=== PATIENT | female | born 1970 | race Caucasian/White ===

== ENCOUNTER → 2022-10-15 | Outpatient (REF) | LOC: M SLEEP HO 10:00 | PROVIDERS: ATTEND Physician Assistant | DX: G47.33 Obstructive sleep apnea (adult) (pediatric) (principal) ==

== ENCOUNTER → 2023-04-29 | Outpatient (CLI) | payer MEDICARE, OTHER | LOC: M WHC 10:37 | PROVIDERS: ATTEND Physician Assistant | DX: Z12.31 Encounter for screening mammogram for malignant neoplasm of breast (principal) ==

== ENCOUNTER → 2024-08-14 | Outpatient (CLI) | payer MEDICARE | LOC: M WHC 13:33 | PROVIDERS: ATTEND Physician Assistant | DX: Z12.31 Encounter for screening mammogram for malignant neoplasm of breast (principal); R92.323 Mammographic fibroglandular density, bilateral breasts ==

== ENCOUNTER → 2025-06-29 | Outpatient (REF) | payer MEDICARE ==
[2025-06-29 18:44] LABS: TOTAL PROTEIN,RANDOM URINE < 6.0 MG/DL (0.0-14.0)
[2025-06-29 18:52] LABS: BASO # 0.1 10^3/uL (0.0-0.2); BASO % 0.6 % (0.0-1.0); EOS # 0.2 10^3/uL (0.0-0.5); EOS % 2.7 % (0.0-3.0); LYMPH # 3.1 10^3/uL (1.5-5.0); LYMPH % 39.2 % (24.0-44.0); MONO # 0.7 10^3/uL (0.0-0.8); MONO % 8.6 % (2.0-8.0); NEUTROPHILS # 3.8 10^3/uL (1.5-8.5); NEUTROPHILS % 48.4 % (36.0-66.0); PLATELET COUNT, AUTOMATED 379 10^3/uL (150-450)
[2025-06-29 18:58] LABS: ERYTHROCYTE SEDIMENTATION RATE 10 mm/hr (0-30)
[2025-06-29 19:01] LABS: APPEARANCE, URINE HAZY (CLEAR); BACTERIA, URINE AUTO NEGATIVE (NEGATIVE); BILIRUBIN, URINE AUTO NEGATIVE (NEGATIVE); BLOOD, URINE BLOOD NEGATIVE (NEGATIVE); CALCIUM OXALATE CRYSTALS SMALL; GLUCOSE, URINE (UA) AUTO NEGATIVE (NEGATIVE); KETONE, URINE AUTO NEGATIVE (NEGATIVE); LEUKOCYTE ESTERASE, URINE AUTO NEGATIVE (NEGATIVE); MUCUS, URINE SMALL (NEGATIVE); NITRITE, URINE AUTO NEGATIVE (NEGATIVE); PROTEIN, URINE AUTO NEGATIVE (NEGATIVE); RBC, URINE AUTO 0 /HPF (0-3); SPECIFIC GRAVITY URINE AUTO 1.016 (1.002-1.035); SQUAMOUS EPITHELIAL CELL UR AU 1 /HPF (0-6); UROBILINOGEN, URINE AUTO 0.2 mg/dL (0.0-2.0); WBC, URINE AUTO 1 /HPF (0-3)
[2025-06-29 20:54] LABS: C REACTIVE PROTEIN QUANTITATIV 0.85 MG/DL (<1.0)
[2025-06-29 20:55] LABS: IRON (FE) 61.0 UG/DL (50-170); MAGNESIUM LEVEL 2.1 MG/DL (1.8-2.4); PERCENT SATURATION 18.2 % (13.2-45.0); PHOSPHORUS LEVEL 4.3 MG/DL (2.5-4.9)
[2025-06-29 20:56] LABS: TOTAL 25(OH) VITAMIN D 37.7 NG/ML (20.0-100.0)
[2025-06-29 20:57] LABS: VITAMIN B12 LEVEL 531.0 PG/ML (211-911)
[2025-06-29 21:53] LABS: COMPLEMENT C4 23.5 MG/DL (12-36)
== END ==
LOC: M SFHCRHEU 14:54
PROVIDERS: ATTEND Internal Medicine
DX: M25.40 Effusion, unspecified joint (principal); R53.83 Other fatigue; D50.9 Iron deficiency anemia, unspecified

== ENCOUNTER → 2025-06-29 | Outpatient (CLI) | payer MEDICARE | LOC: M PLAIMG 15:24 | PROVIDERS: ATTEND Internal Medicine | DX: M25.50 Pain in unspecified joint (principal) ==

== ENCOUNTER → 2025-08-02 | Outpatient (REF) | LOC: M SLEEP HO 11:00 | PROVIDERS: ATTEND Physician Assistant | DX: G47.33 Obstructive sleep apnea (adult) (pediatric) (principal) ==

== ENCOUNTER → 2025-09-02 | Outpatient (CLI) | payer MEDICARE, MEDICAID | LOC: M PLAIMG 09:10 | PROVIDERS: ATTEND Internal Medicine | DX: M79.89 Other specified soft tissue disorders (principal); M19.032 Primary osteoarthritis, left wrist; M25.432 Effusion, left wrist; M65.842 Other synovitis and tenosynovitis, left hand ==